=== PATIENT | male | born 1950 | race Caucasian/White ===

== ENCOUNTER → 2017-01-25 | Outpatient (REF) | payer MEDICARE ==
[~2017-01-25] MED LIST: EXTR500C4 PO; GABA-279 PO; LISI10TA2 PO; MELO15TA4 PO; PERC5TAB12 PO; VITA1CAP20 PO; VITA1CAP7 PO
[2017-01-25 12:15] LABS: ALBUMIN 3.9 GM/DL (3.2-5.2); ALBUMIN/GLOBULIN RATIO 1.18 (1.00-1.93); ALKALINE PHOSPHATASE 75 U/L (45-117); ALT/SGPT 27 U/L (12-78); ANION GAP 11 MEQ/L (8-16); AST/SGOT 26 U/L (15-37); BILIRUBIN,TOTAL 0.4 MG/DL (0.2-1.0); BLOOD UREA NITROGEN 17 MG/DL (7-18); CALCIUM LEVEL 9.3 MG/DL (8.8-10.2); CARBON DIOXIDE LEVEL 26 MEQ/L (21-32); CHLORIDE LEVEL 106 MEQ/L (98-107); CHOLESTEROL LEVEL 179 MG/DL (<200); GLOMERULAR FILTRATION RATE > 60.0 (>49); GLUCOSE, FASTING 90 MG/DL (80-110); POTASSIUM SERUM 4.2 MEQ/L (3.5-5.1); SODIUM LEVEL 143 MEQ/L (136-145); TOTAL PROTEIN 7.2 GM/DL (6.4-8.2); TRIGLYCERIDES LEVEL 73 MG/DL (<150)
== END ==
LOC: M SFHCCLAY 09:01
PROVIDERS: ATTEND Family Medicine
DX: Z00.01 Encounter for general adult medical examination with abnormal findings (principal); Z85.46 Personal history of malignant neoplasm of prostate; Z79.899 Other long term (current) drug therapy; M48.06 Spinal stenosis, lumbar region
CPT/HCPCS: 80053; 80061; 84443; G0103

== ENCOUNTER → 2017-10-31 | Outpatient (REF) | payer MEDICARE ==
[2017-10-31 17:31] LABS: ALBUMIN 4.1 GM/DL (3.2-5.2); ALBUMIN/GLOBULIN RATIO 1.11 (1.00-1.93); ALKALINE PHOSPHATASE 70 U/L (45-117); ALT/SGPT 23 U/L (12-78); ANION GAP 11 MEQ/L (8-16); AST/SGOT 18 U/L (7-37); BILIRUBIN,TOTAL 0.7 MG/DL (0.2-1.0); BLOOD UREA NITROGEN 17 MG/DL (7-18); CARBON DIOXIDE LEVEL 26 MEQ/L (21-32); CHLORIDE LEVEL 104 MEQ/L (98-107); CHOLESTEROL LEVEL 200 MG/DL (<200); CHOLESTEROL RISK RATIO 2.985 (<5); CREATININE FOR GFR 1.15 MG/DL (0.70-1.30); GLOMERULAR FILTRATION RATE > 60.0 (>49); GLUCOSE, FASTING 75 MG/DL (70-100); HDL CHOLESTEROL 67 MG/DL (>40); LDL CHOLESTEROL 113.6 MG/DL (<100); NON-HDL-C 133 MG/DL; POTASSIUM SERUM 4.3 MEQ/L (3.5-5.1); PROSTATIC SPECIFIC AG MONITOR 0.11 NG/ML (< 4.0); SODIUM LEVEL 141 MEQ/L (136-145); TOTAL PROTEIN 7.8 GM/DL (6.4-8.2); TRIGLYCERIDES LEVEL 97 MG/DL (<150)
== END ==
LOC: M SFHCCLAY 13:28
DX: I10 Essential (primary) hypertension (principal); Z85.46 Personal history of malignant neoplasm of prostate
CPT/HCPCS: 80053

== ENCOUNTER → 2018-05-01 | Outpatient (REF) | payer MEDICARE ==
[2018-05-01 17:35] LABS: PROSTATIC SPECIFIC AG MONITOR 0.1 NG/ML (< 4.0)
== END ==
LOC: M SFHCCLAY 11:08
DX: Z85.46 Personal history of malignant neoplasm of prostate (principal)
CPT/HCPCS: 84153

== ENCOUNTER → 2018-06-21 | Outpatient (REF) | payer MEDICARE ==
[~2018-06-21] MED LIST changes: +GABA-1171 PO; -GABA-279 PO; +MELO15TA28 PO; -MELO15TA4 PO
[2018-06-21 17:44] LABS: INR 0.99; PROTHROMBIN TIME 13.2 SECONDS (12.1-14.4)
[2018-06-21 17:45] LABS: PARTIAL THROMBOPLASTIN TIME 31.6 SECONDS (25.4-37.6)
== END ==
LOC: M LABDRAW1 16:26
PROVIDERS: ATTEND Physician Assistant
DX: Z01.812 Encounter for preprocedural laboratory examination (principal); Z79.899 Other long term (current) drug therapy

== ENCOUNTER → 2018-09-11 | Outpatient (CLI) | payer MEDICARE ==
[~2018-09-11] MED LIST changes: +D-3-50003 PO; -VITA1CAP7 PO
--- NOTE | 2018-09-11 14:20 | REP ---
Chest two views HISTORY: Cough Comparison: None The lungs are clear. The heart is normal in size. The pulmonary vasculature is normal in appearance. Degenerative change is present in the thoracic spine. IMPRESSION: No acute disease.
== END ==
LOC: M CLY 13:29
PROVIDERS: ATTEND Family Medicine
DX: R05 Cough (principal); R50.9 Fever, unspecified
CPT/HCPCS: 71046; G0463

== ENCOUNTER → 2018-11-01 | Outpatient (REF) | payer MEDICARE ==
[2018-11-01 16:26] LABS: ALBUMIN 3.8 GM/DL (3.2-5.2); ALT/SGPT 33 U/L (12-78); BILIRUBIN,TOTAL 0.4 MG/DL (0.2-1.0); BLOOD UREA NITROGEN 17 MG/DL (7-18); CARBON DIOXIDE LEVEL 31 MEQ/L (21-32); CHLORIDE LEVEL 104 MEQ/L (98-107); CHOLESTEROL LEVEL 209 MG/DL (<200); CHOLESTEROL RISK RATIO 3.215 (<5); CREATININE FOR GFR 1.11 MG/DL (0.70-1.30); GLOMERULAR FILTRATION RATE > 60.0 (>42); GLUCOSE, FASTING 87 MG/DL (70-100); HDL CHOLESTEROL 65 MG/DL (>40); LDL CHOLESTEROL 132 MG/DL (<100); NON-HDL-C 144 MG/DL; POTASSIUM SERUM 4.3 MEQ/L (3.5-5.1); PROSTATIC SPECIFIC AG MONITOR 0.16 NG/ML (< 4.00); SODIUM LEVEL 141 MEQ/L (136-145); TOTAL PROTEIN 7.5 GM/DL (6.4-8.2); TRIGLYCERIDES LEVEL 60 MG/DL (<150)
== END ==
LOC: M SFHCCLAY 12:32
PROVIDERS: ATTEND Family Medicine
DX: I10 Essential (primary) hypertension (principal); Z85.46 Personal history of malignant neoplasm of prostate

== ENCOUNTER 2019-06-29 09:24 | Day surgery (SDC) | payer MEDICARE ==
[~2019-06-29] VITALS: Ht 170.2 cm; Wt 68.0 kg
[~2019-06-29 09:24] MED LIST changes: +ACET-683 PO; +GABA600T4 PO; +K 10100T PO; +LIDOCAINE 2% INJ 100 MG/5 ML SDV (FOR ANES.) As Ordered ONE; +LISI10TA15 PO; -LISI10TA2 PO; +VITA500079 PO; +propofoL 200 MG/20 ML VIAL As Ordered ONE
--- NOTE | 2019-06-29 12:00 | ROOR ---
Patient Name: Mono Sommer Procedure Date: 06/29/2019 11:39 AM Date of : 1950 Age: 69 Room: ARAGON02 Gender: Male Note Status: Finalized Procedure: Colonoscopy Indications: High risk colon cancer surveillance: Personal history of colonic polyps Providers: Aubrey JAY MD Referring MD: Redd Dash MD Requesting Provider: Medicines: Monitored Anesthesia Care Complications: No immediate complications. Procedure: Pre-Anesthesia Assessment: - The heart rate, respiratory rate, oxygen saturations, blood pressure, adequacy of pulmonary ventilation, and response to care were monitored throughout the procedure. The Colonoscope was introduced through the anus and advanced to the cecum, identified by appendiceal orifice and ileocecal valve. The colonoscopy was performed without difficulty. The patient tolerated the procedure well. The quality of the bowel preparation was inadequate. Findings: The perianal and digital rectal examinations were normal. Two sessile polyps were found in the rectum (benign-appearing lesion). The polyps were 5 to 7 mm in size. These polyps were removed with a cold snare. Resection and retrieval were complete. Multiple diverticula were found in the sigmoid colon. Internal hemorrhoids were found during retroflexion. The hemorrhoids were moderate. The exam was otherwise without abnormality on direct and retroflexion views. Impression: - Preparation of the colon was inadequate/suboptimal after extensive lavage. - Two benign appearing 5 to 7 mm polyps in the rectum, removed with a cold snare. Resected and retrieved. - Moderate diverticulosis in the sigmoid colon. - Internal hemorrhoids. - The examination was otherwise normal on direct and retroflexion views. Recommendation: - Repeat colonoscopy in 2 years because the bowel preparation was suboptimal. - (Rec alternate colon preparation for next colonoscopy) Aubrey Jay MD Aubrey JAY MD 06/29/2019 11:59:57 AM Electronically signed by Aubrey JAY MD Number of Addenda: 0 Note Initiated On: 06/29/2019 11:39 AM Estimated Blood Loss: Estimated blood loss: none.
[2019-06-29 12:30] VITALS: BP 130/76
[2019-06-30] MEDS ORDERED: NS 1,000 ML IV ONE (07:00)
== END 2019-06-29 12:32 | disposition home or self-care (01) ==
LOC: M OPP 09:24
PROVIDERS: ATTEND Internal Medicine Gastroenterology
DX: Z12.11 Encounter for screening for malignant neoplasm of colon (principal); Z86.010 Personal history of colon polyps; K64.8 Other hemorrhoids; K62.1 Rectal polyp; K57.30 Diverticulosis of large intestine without perforation or abscess without bleeding; Z79.899 Other long term (current) drug therapy

== ENCOUNTER → 2020-04-16 | Outpatient (REF) | payer MEDICARE ==
[~2020-04-16] MED LIST changes: -LIDOCAINE 2% INJ 100 MG/5 ML SDV (FOR ANES.) As Ordered ONE; -propofoL 200 MG/20 ML VIAL As Ordered ONE
[2020-04-16 13:36] LABS: BILIRUBIN,TOTAL 0.5 MG/DL (0.2-1.0); CALCIUM LEVEL 9.9 MG/DL (8.8-10.2); CHOLESTEROL RISK RATIO 3.745 (<5); CREATININE FOR GFR 1.34 MG/DL (0.70-1.30); GLOMERULAR FILTRATION RATE 55.8 (>42); POTASSIUM SERUM 4.8 MEQ/L (3.5-5.1); PROSTATIC SPECIFIC AG MONITOR 0.31 NG/ML (< 4.00); TOTAL PROTEIN 7.4 GM/DL (6.4-8.2)
== END ==
LOC: M SFHCCLAY 08:24
PROVIDERS: ATTEND Family Medicine
DX: I11.9 Hypertensive heart disease without heart failure (principal); Z13.220 Encounter for screening for lipoid disorders; Z85.46 Personal history of malignant neoplasm of prostate
CPT/HCPCS: 80053; 80061; 84153; G0463

== ENCOUNTER → 2020-05-22 | Outpatient (REF) | payer MEDICARE | LOC: M LABSMT 11:05 | PROVIDERS: ATTEND Urology | DX: Z85.46 Personal history of malignant neoplasm of prostate (principal) | CPT/HCPCS: 84153; 84403; G0463 ==

== ENCOUNTER → 2020-06-10 | Outpatient (CLI) | payer MEDICARE ==
[~2020-06-10] MED LIST changes: +CASO50TA5 PO
--- NOTE | 2020-06-10 11:29 | REP ---
INDICATION: HX OF PROSTATE CA, METS?. COMPARISON: None. TECHNIQUE/RADIOTRACER AND DOSE: Following the intravenous administration of 22 mCi technetium 99 M MDP, patient's low body is imaged in multiple projections. FINDINGS: Mild scattered uptake in portions of the entire spine have a pattern most consistent with arthritic uptake. Most significantly there appears to be arthritic uptake at the posterior facet joints of L4-5. There is arthritic uptake at the left knee joint, posterior aspect of right ankle joint and at the inferior aspect of the right calcaneus. There is mild symmetrical arthritic uptake at the shoulders. There is no compelling scintigraphic evidence of osseous metastases. Renal and bladder activity are seen. IMPRESSION: Scattered arthritic uptake as discussed in detail above. No compelling scintigraphic evidence of osseous metastases. <Electronically signed by Cain Eugene > 06/10/20 1431
== END ==
LOC: M RAD 08:09
PROVIDERS: ATTEND Urology
DX: Z85.46 Personal history of malignant neoplasm of prostate (principal)
CPT/HCPCS: 78306; A9503

== ENCOUNTER → 2020-06-25 | Outpatient (CLI) | payer MEDICARE ==
--- NOTE | 2020-06-25 12:55 | RADONC.CN ---
Radiation Oncology Hx/Consult Radiation Oncology Consult Date of Service: Jun 25, 2020 Pt Identifier Mono Sommer is a 70 year old male with [id number] [place] 3+4=7 PSA 6.83 prostate cancer s/p RP in 2012 ([facility]) with positive right posterolateral margin. He has had a very slow PSA recurrence initially 0.1 post operatively but now rising on serial measurements to 0.32 on most recent check. He is seen for consideration of salvage RT and ADT. Diagnosis/Treatment History Oncologic History Followed originally in [facility] for rising PSA. PSA trend: February 2013 6.82 ng/ml (pre RP) May 2013 0.1 (post-RP) ...stable PSA readings through 201811/01/18 0.16 04/16/20 0.31 05/22/20 0.32 Testosterone 540 RP 05/04/13 [id number] [place] 3+4=7 Tert pattern 5 PNI positive LVI negative Right posterolateral margin positive Recent data: 06/10/20 Bone scan negative IPSS 0 WARD 10 Interval History Mono feels well. He has ED, of moderate nature, has responded previously to cialis, and he says it predates surgery. Definitely worse since RP. Not a priority for him at this time. He has no urinary symptoms whatsoever, no inc ontinence, frequency, nocturia or issues with emptying his bladder. He has regular daily BMs. His appetite is good and weight and energy stable. Past Medical History: HTN Past Surgical History: Laminectomy lumbar 2016 Tonsillectomy Family History: Father sarcoma? 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 Allergies / Meds Allergies: Coded Allergies: No Known Allergies (Unverified , 06/22/19) Home Meds Active Scripts Bicalutamide (Casodex) 50 Mg Tablet, 1 TAB PO DAILY for 30 Days, #30 TAB Prov:JOAQUÍN ADDISON MD 06/25/20 Reported Medications Gabapentin (Gabapentin) 600 Mg Tablet, 600 MG PO TID 06/15/19 Phytonadione (Vit K1) (Vitamin K) 100 Mcg Tablet, 100 MCG PO DAILY, TAB 06/15/19 Cholecalciferol (Vitamin D3) (Vitamin D3) 5,000 Unit Tab.rapdis, 5000 UNIT PO DAILY 06/15/19 Acetaminophen (Acetaminophen) 500 Mg Tablet, 1000 MG PO Q6HP PRN for PAIN, TAB 06/15/19 Lisinopril/Hydrochlorothiazide (Lisinopril-Hctz 10-12.5 mg Tab) 1 Tab Tab, 1 TAB PO DAILY, TAB 11/19/15 Review of Systems Constitutional: Denies: Chills, Fever, Night Sweats Eyes: Denies: Pain, Vision change HEENT: Denies: Head Aches, Dysphagia, Sore Throat Skin: Denies: Rash, Lesions, Bruising Pulmonary: Denies: Dyspnea, Cough Cardiovascular: Denies: Chest Pain, Palpitations, Edema Gastrointestinal: Denies: Nausea, Vomiting, Abdominal Pain, Diarrhea Genitourinary: Denies: Dysuria, Frequency, Incontinence, Hematuria, Retention, Other Symptoms Hematologic: Denies: Bruising, Petecchia, Enlarged Lymph Nodes Musculoskeletal: Denies: Neck pain, Back pain Neurological: Denies: Weakness, Numbness, Incoordination Psych: Reports: Mood Normal; Denies: Memory Issues, Thoughts of Self Harm Vital Signs Ht 67" Wt 162 lb BMI 25 T 97.8 P 71 RR 18 BP 134/71 O2 98% Pain 0 Fatigue 0 General Exam: Positive: Alert, Cooperative, No Acute Distress Eye Exam: Positive: PERRLA, EOMI ENT EXAM: Positive: Mucous membr. moist/pink, Pharynx Normal Neck Exam: Negative: Thyromegaly, Lymphadenopathy Chest Exam: Positive: Normal air movement; Negative: Rales, Rhonchi, Wheezing Heart Exam: Positive: Rate Normal, Regular Rhythm Abdomen Exam: Positive: Soft; Negative: Tenderness, Mass Extremity Exam: Negative: Edema, Tenderness Skin Exam: Positive: Nl turgor and temperature; Negative: Rash Neuro Exam: Positive: Normal Gait, Normal Speech, Cranial Nerves 3-12 NL Psych Exam: Positive: Mental status NL, Mood NL, Memory Intact Other Physical Findings BROOK[place]NN negative, no nodularity in the prostate bed Diagnostic and Laboratory Diagnostic Review Radiologic images, relevant labs and pathology reports were personally reviewed and discussed with Mr. Sommer. Assessment and Plan Impression Mr. Sommer is a 70 year old male with a history of [id number] [place] 3+4=7 PSA 6.83 prostate cancer s/p RP in 2013 ([facility]) with positive right posterolateral margin. He has had a very slow PSA recurrence initially 0.1 post operatively but now rising on serial measurements to 0.32 on most recent check. He is seen for consideration of salvage RT and ADT. Stage [id number] [place] 3+4=7 PSA 6.83 prostate cancer stage IIB positive right po sterolateral margin Performance Status ECOG 0 Plan We had an extensive discussion with Mr. Sommer regarding the diagnosis at hand and available therapeutic options. He has preserved urinary function and no real bothersome symptoms whatsoever. He does have ED but this has been long standing and on dipti discussion today he is realistic in his expectation that it will only get worse with additional therapy. I computed his MSK nomogram which gives a ~60% of biochemical remission with EBRT alone and ~80% with the addition of 6 months of ADT to EBRT. We discussed these options and he would like to have the combined modality approach. For this I will arrange for an initial casodex script and a 6 month eligard shot to follow in the coming weeks. For EBRT I will give 68.4 Gy in 38 fractions to the prostate bed, I will also give a lower dose to the pelvic LN on the basis of the SPPORT trial which identified a PFS advantage with this approach in med with PSA ~0.3 and higher. I do not think this will add excessive toxicity. We discussed the logistics of receiving radiation therapy in detail including the need for a 1-time planning session. We reviewed the side effects of RT, irritative voiding symptoms, fatigue, acute and late rectal side effects, as well as those of ADT, fatigue, lethargy, joint pains, hot flashes and weight gain. These effects all would be expected to subside within a few months of completing ADT given he is otherwise quite healthy and fit. We discussed the paradigm for follow up after, serial PSA checks and testosterone checks until normalization. After discussing the risks, benefits and alternatives to radiation therapy, Mr. Sommer was amenable to pursuing radiotherapy. All questions were answered to the patient's satisfaction. We instructed the patient that if there were any questions,concerns or changes in clinical status in the interim to contact us. Recommendations EBRT + 6 months ADT as discussed above Casodex 50 mg daily to start now Eligard 6 month injection in next 1-2 weeks Simulation in next 1-2 weeks JOAQUÍN ADDISON MD Jun 25, 2020 12:55
== END ==
LOC: M ONCR 10:41
PROVIDERS: ATTEND General Practice
DX: C61 Malignant neoplasm of prostate (principal)

== ENCOUNTER → 2020-07-09 | Outpatient (CLI) | payer MEDICARE ==
[~2020-07-09] MED LIST changes: +LEUPROLIDE 22.5MG KIT (LUPRON DEPOT) (FOR ONCOLOGY) IM ONE
--- NOTE | 2020-07-09 16:44 | RADENCPD ---
Date/Time of Encounter Date of Encounter: Jul 09, 2020 Time of Encounter: 15:00 Encounter Mono presented for his first lupron injection today. Plan is for 6 months of total therapy along with salvage RT. The latter will begin next week. We reviewed the side effects of ADT hot flashes, fatigue, weight gain, joint pains, and loss of libido. Informed consent to proceed was obtained. 3 month lupron injection given. Continue casodex daily until 30 supply runs out. Will confirm testosterone/PSA suppression in the coming weeks. JOAQUÍN ADDISON MD Jul 09, 2020 16:44
== END ==
LOC: M ONCR 14:35
PROVIDERS: ATTEND General Practice
DX: C61 Malignant neoplasm of prostate (principal)
CPT/HCPCS: G0463; J9217

== ENCOUNTER 2020-07-18 12:51 | Outpatient (RCR) | payer MEDICARE ==
[~2020-07-18 12:51] MED LIST changes: -LEUPROLIDE 22.5MG KIT (LUPRON DEPOT) (FOR ONCOLOGY) IM ONE
== END 2020-07-20 ==
LOC: M ONCR 12:51
PROVIDERS: ATTEND General Practice
DX: C61 Malignant neoplasm of prostate (principal)

== ENCOUNTER → 2020-08-20 | Outpatient (RCR) | payer MEDICARE ==
[~2020-08-20] MED LIST changes: +ONDA-83 PO
== END ==
LOC: M ONCR 07-21 12:37
PROVIDERS: ATTEND General Practice
DX: C61 Malignant neoplasm of prostate (principal)

== ENCOUNTER 2020-09-04 14:05 | Outpatient (RCR) | payer MEDICARE | END 2020-09-19 | LOC: M ONCR 14:05 | PROVIDERS: ATTEND General Practice | DX: C61 Malignant neoplasm of prostate (principal) ==

== ENCOUNTER → 2020-09-09 | Outpatient (REF) | payer MEDICARE | LOC: M LAB REF 16:15 | PROVIDERS: ATTEND Surgery | DX: D23.5 Other benign neoplasm of skin of trunk (principal) ==

== ENCOUNTER → 2020-10-09 | Outpatient (CLI) | payer MEDICARE ==
[~2020-10-09] MED LIST changes: +LEUPROLIDE 22.5MG KIT (LUPRON DEPOT) (FOR ONCOLOGY) IM ONE; +VENL75TA2 PO
--- NOTE | 2020-10-09 15:00 | RADENCPD ---
Date/Time of Encounter Date of Encounter: October 09, 2020 Time of Encounter: 14:57 Encounter Mono came in for a brief visit prior to his 2nd and final 3 month lupron injection. He reports that his urination and bowel movements are at his pre-RT baseline. He does however complain of ongoing hot flashes, particularly at night, very bothersome. He has been taking gabapentin 600 mg TID, this has not been effective. I discussed trying effexor 75 mg BID for this, he agreed. We will proceed with 22.5 mg lupron today and follow up in February 2021 with PSA/testosterone as previously planned. JOAQUÍN ADDISON MD October 09, 2020 15:00
== END ==
LOC: M ONCR 13:57
PROVIDERS: ATTEND General Practice
DX: C61 Malignant neoplasm of prostate (principal)
CPT/HCPCS: 96401; J9217

== ENCOUNTER → 2020-11-17 | Outpatient (REF) | payer MEDICARE ==
[~2020-11-17] MED LIST changes: -LEUPROLIDE 22.5MG KIT (LUPRON DEPOT) (FOR ONCOLOGY) IM ONE
[2020-11-18 12:01] LABS: BLOOD UREA NITROGEN 14 MG/DL (7-18); CALCIUM LEVEL 9.8 MG/DL (8.8-10.2); CARBON DIOXIDE LEVEL 31 MEQ/L (21-32); CHLORIDE LEVEL 104 MEQ/L (98-107); CREATININE FOR GFR 1.12 MG/DL (0.70-1.30); GLOMERULAR FILTRATION RATE > 60.0 (>42); GLUCOSE, FASTING 77 MG/DL (70-100); POTASSIUM SERUM 5.4 MEQ/L (3.5-5.1); SODIUM LEVEL 137 MEQ/L (136-145)
== END ==
LOC: M SFHCCLAY 14:33
PROVIDERS: ATTEND Family Medicine
DX: I11.9 Hypertensive heart disease without heart failure (principal)
CPT/HCPCS: 80048; G0442; G0444

== ENCOUNTER → 2020-11-19 | Outpatient (REF) | payer MEDICARE ==
[2020-11-19 16:59] LABS: BLOOD UREA NITROGEN 21 MG/DL (7-18); CALCIUM LEVEL 9.3 MG/DL (8.8-10.2); CARBON DIOXIDE LEVEL 29 MEQ/L (21-32); CHLORIDE LEVEL 104 MEQ/L (98-107); CREATININE FOR GFR 1.06 MG/DL (0.70-1.30); GLOMERULAR FILTRATION RATE > 60.0 (>42); GLUCOSE, FASTING 94 MG/DL (70-100); POTASSIUM SERUM 4.5 MEQ/L (3.5-5.1); PROSTATIC SPECIFIC AG MONITOR < 0.01 NG/ML (< 4.00); SODIUM LEVEL 138 MEQ/L (136-145)
== END ==
LOC: M SFHCCLAY 09:30
PROVIDERS: ATTEND Family Medicine
DX: E87.5 Hyperkalemia (principal); C79.82 Secondary malignant neoplasm of genital organs

== ENCOUNTER → 2020-12-15 | Outpatient (CLI) | payer MEDICARE ==
--- NOTE | 2020-12-15 09:57 | REP ---
INDICATION: AAA SCREENING COMPARISON: None. TECHNIQUE: Multiple ultrasonographic images of the abdominal aorta were obtained from the level of the celiac access to the aortoiliac bifurcation and the longitudinal and transverse scan planes along with color Doppler imaging. FINDINGS: The maximal AP dimension of the abdominal aorta as measured in the longitudinal scan plane is 2.2 cm IMPRESSION: No evidence of abdominal aortic aneurysm. <Electronically signed by Vinicio Trujillo > 12/15/20 0920
== END ==
LOC: M RAD 09:11
PROVIDERS: ATTEND Family Medicine
DX: Z13.6 Encounter for screening for cardiovascular disorders (principal)

== ENCOUNTER → 2021-01-01 | Outpatient (CLI) | payer MEDICARE ==
--- NOTE | 2021-01-01 11:42 | REP ---
INDICATION: LUNG CANCER SCREENING. COMPARISON: None. TECHNIQUE: Low-dose chest CT FINDINGS: There is a 5 mm oval nodule in the lateral segment of the right middle lobe. The lungs are otherwise clear. No evidence of adenopathy. Coronary artery calcifications noted. No failure or effusion. IMPRESSION: 5 mm oval nodule lateral segment right middle lobe. Lung rad 2: Benign 1 year follow-up <Electronically signed by Jay Sanabria > 01/01/21 1139
== END ==
LOC: M RAD 11:22
PROVIDERS: ATTEND Family Medicine
DX: Z12.2 Encounter for screening for malignant neoplasm of respiratory organs (principal); R91.1 Solitary pulmonary nodule

== ENCOUNTER → 2021-03-09 | Outpatient (REF) | payer MEDICARE ==
[2021-03-09 16:51] LABS: PROSTATIC SPECIFIC AG MONITOR < 0.01 NG/ML (< 4.00)
[2021-03-11 11:28] LABS: TESTOSTERONE 227 NG/DL (241-827)
== END ==
LOC: M LABDRAWC 15:51
PROVIDERS: ATTEND General Practice
DX: C61 Malignant neoplasm of prostate (principal)

== ENCOUNTER → 2021-03-11 | Outpatient (CLI) | payer MEDICARE ==
--- NOTE | 2021-03-11 11:11 | RADONC ---
Radiation Oncology Hx/FUP Radiation Oncology Hx/FUP Date of Service: Mar 11, 2021 Pt Identifier Mono Sommer is a 70 year old male seen for a followup visit today at the department of radiation oncology for a history of [id number] [place] 3+4=7 PSA 6.83 prostate cancer s/p RP in 2012 ([facility]) with positive right posterolateral margin. He had a very slow PSA recurrence initially 0.1 post operatively but blossom on serial measurements to 0.32. He completed salvage RT 68.4 Gy in 38 fractions completed 07/14/20-09/04/20 and he received 45 mg Lupron on 07/09/20. Diagnosis/Treatment History Oncologic History Followed originally in [facility] for rising PSA. PSA trend: February 2013 6.82 ng/ml (pre RP) May 2013 0.1 (post-RP) ...stable PSA readings through 201811/01/18 0.16 04/16/20 0.31 05/22/20 0.32 Testosterone 540 03/10/21 <0.01 Testosterone pending RP 05/04/13 [id number] [place] 3+4=7 Tert pattern 5 PNI positive LVI negative Right posterolateral margin positive Recent data: 06/10/20 Bone scan negative Interval History Mono has no urinary or bowel complaints whatsoever. Main concern is ongoing hot flashes, concerned that his lupron has worn off and he is still having these. They have been stable in frequency over recent months. 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 Allergies / Meds Allergies: Coded Allergies: No Known Allergies (Unverified , 06/22/19) Home Meds Active Scripts Venlafaxine HCl (Venlafaxine HCl) 75 Mg Tablet, 1 TAB PO BID for 30 Days, #60 TAB 5 Refills Prov:JOAQUÍN ADDISON MD 10/09/20 Reported Medications Gabapentin (Gabapentin) 600 Mg Tablet, 600 MG PO TID 06/15/19 Phytonadione (Vit K1) (Vitamin K) 100 Mcg Tablet, 100 MCG PO DAILY, TAB 06/15/19 Cholecalciferol (Vitamin D3) (Vitamin D3) 5,000 Unit Tab.rapdis, 5000 UNIT PO DAILY 06/15/19 Acetaminophen (Acetaminophen) 500 Mg Tablet, 1000 MG PO Q6HP PRN for PAIN, TAB 06/15/19 Lisinopril/Hydrochlorothiazide (Lisinopril-Hctz 10-12.5 mg Tab) 1 Tab Tab, 1 TAB PO DAILY, TAB 11/19/15 Review of Systems Review of Systems Constitutional: Reports: Night Sweats; Denies: Fatigue, Weight Loss Eyes: Denies: Pain HEENT: Denies: Head Aches Cardiovascular: Denies: Chest Pain Gastrointestinal: Denies: Abdominal Pain, Hematochezia Genitourinary: Denies: Dysuria, Frequency, Incontinence, Retention Neurological: Denies: Weakness, Numbness Psych: Reports: Mood Normal Physical Examination Vital Signs Wt 162 lbs T 96.8 P 72 RR 116/69 O2 100% Pain 0 Fatigue 0 General Exam: Alert, Cooperative, No Acute Distress Eye Exam: PERRLA, EOMI ENT EXAM: Atraumatic Neck Exam: Supple Chest Exam: Clear to auscultation Heart Exam: Rate Normal Abdomen Exam: Soft Extremity Exam: Negative: Edema Skin Exam: Nl turgor and temperature Neuro Exam: Normal Gait, Normal Speech, Cranial Nerves 3-12 NL Psych Exam: Mental status NL Diagnostic and Laboratory Diagnostic Review Radiologic images, relevant labs and pathology reports were personally reviewed and discussed with Mr. Sommer. Assessment and Plan Impression Assessment Mr. Sommer is a 70 year old male with a history of [id number] [place] 3+4=7 PSA 6.83 prostate cancer s/p RP in 2013 ([facility]) with positive right posterolateral margin. He had a very slow PSA recurrence initially 0.1 post operatively but blossom on serial measurements to 0.32. He completed salvage RT 68.4 Gy in 38 fractions completed 07/14/20-09/04/20 and he received 45 mg Lupron on 07/09/20. PSA appropriately suppressed. Suspect testosterone will recover in ensuing months and his hot flashes will subside along with. Will add testosterone to yesterday's labs and call with result. No urinary or bowel complaints. Has urology follow up in the winter. I will see him again with PSA/testosterone in 6 months time. Performance Status ECOG 0 Plan Mr. Sommer was encouraged to call with questions or concerns in the interim period. Billing Statement Total time of [22] minutes was spent preparing for the visit [1], obtaining HPI [4], examining the patient [1], reviewing diagnostic tests [1], discussing management options [7], coordinating care [1], and writing this note [7]. JOAQUÍN ADDISON MD Mar 11, 2021 11:11
== END ==
LOC: M ONCR 10:28
PROVIDERS: ATTEND General Practice
DX: C61 Malignant neoplasm of prostate (principal); Z79.899 Other long term (current) drug therapy; Z92.3 Personal history of irradiation; Z92.25 Personal history of immunosuppression therapy

== ENCOUNTER → 2021-05-27 | Outpatient (REF) | payer MEDICARE ==
[~2021-05-27] MED LIST changes: -LISI10TA15 PO; +LISI10TA24 PO
== END ==
LOC: M SFHCCLAY 13:54
PROVIDERS: ATTEND Family Medicine
DX: I11.9 Hypertensive heart disease without heart failure (principal); Z85.46 Personal history of malignant neoplasm of prostate
CPT/HCPCS: 80048; 84153; G0463

== ENCOUNTER → 2021-08-20 | Outpatient (CLI) | payer MEDICARE | LOC: M LABSMTC 11:22 | PROVIDERS: ATTEND Anesthesiology | DX: Z01.818 Encounter for other preprocedural examination (principal); Z11.52 Encounter for screening for COVID-19 ==

== ENCOUNTER 2021-08-25 11:45 | Day surgery (SDC) | payer MEDICARE ==
[~2021-08-25] VITALS: Ht 170.2 cm; Wt 65.8 kg
[~2021-08-25 11:45] MED LIST changes: +NS 1,000 ML IV ONE
[2021-08-25] MEDS ORDERED: propofoL 200 MG/20 ML VIAL As Ordered ONE (13:53)
[2021-08-25] MEDS ORDERED: LIDOCAINE 2% 100MG/5ML SDV (FOR ANES.) As Ordered ONE (13:53)
[2021-08-25] MEDS ORDERED: PHENYLephrine 500MCG 5ML (100MCG/ML) SYRINGE As Ordered ONE (13:53)
[2021-08-25 14:20] VITALS: BP 100/66
== END 2021-08-25 14:27 | disposition home or self-care (01) ==
LOC: M OPP 11:45
PROVIDERS: ATTEND Internal Medicine Gastroenterology
DX: Z12.11 Encounter for screening for malignant neoplasm of colon (principal); Z86.010 Personal history of colon polyps; K63.5 Polyp of colon; K57.30 Diverticulosis of large intestine without perforation or abscess without bleeding; K64.8 Other hemorrhoids; Z80.8 Family history of malignant neoplasm of other organs or systems; Z85.46 Personal history of malignant neoplasm of prostate; Z85.828 Personal history of other malignant neoplasm of skin; Z79.899 Other long term (current) drug therapy; Z87.891 Personal history of nicotine dependence
CPT/HCPCS: 45385; 88305; J2370

== ENCOUNTER → 2021-09-15 | Outpatient (REF) | payer MEDICARE ==
[~2021-09-15] MED LIST changes: -NS 1,000 ML IV ONE
[2021-09-15 12:22] LABS: PROSTATIC SPECIFIC AG MONITOR < 0.01 NG/ML (< 4.00)
[2021-09-15 12:26] LABS: TESTOSTERONE 511 NG/DL (241-827)
== END ==
LOC: M LABDRAWC 11:35
PROVIDERS: ATTEND General Practice
DX: C61 Malignant neoplasm of prostate (principal)

== ENCOUNTER → 2021-09-16 | Outpatient (CLI) | payer MEDICARE | LOC: M ONCR 10:23 | PROVIDERS: ATTEND General Practice | DX: C61 Malignant neoplasm of prostate (principal); Z77.090 Contact with and (suspected) exposure to asbestos; Z87.891 Personal history of nicotine dependence; Z92.3 Personal history of irradiation; Z92.25 Personal history of immunosuppression therapy ==

== ENCOUNTER → 2021-12-14 | Outpatient (REF) | payer MEDICARE ==
[2021-12-14 19:50] LABS: BLOOD UREA NITROGEN 18 MG/DL (7-18); CHLORIDE LEVEL 109 MEQ/L (98-107); CREATININE FOR GFR 1.12 MG/DL (0.70-1.30); GLOMERULAR FILTRATION RATE > 60.0 (>42); GLUCOSE, FASTING 85 MG/DL (70-100); POTASSIUM SERUM 4.2 MEQ/L (3.5-5.1); SODIUM LEVEL 142 MEQ/L (136-145)
[2021-12-14 19:51] LABS: CALCIUM LEVEL 9.5 MG/DL (8.8-10.2); CARBON DIOXIDE LEVEL 28 mmol/L (20-29)
== END ==
LOC: M SFHCLERA 10:32
PROVIDERS: ATTEND Family Medicine
DX: I11.9 Hypertensive heart disease without heart failure (principal)

== ENCOUNTER → 2022-06-03 | Outpatient (REF) | payer MEDICARE ==
[2022-06-03 11:49] LABS: BASO % 0.5 % (0.0-1.0); EOS # 0.2 10^3/uL (0.0-0.5); EOS % 2.5 % (0.0-3.0); HEMATOCRIT 45.7 % (42.0-52.0); HEMOGLOBIN 14.9 g/dl (13.5-17.5); LYMPH # 0.8 10^3/uL (1.5-5.0); LYMPH % 9.5 % (24.0-44.0); MEAN CORPUSCULAR HEMOGLOBIN 32.3 pg (27.0-33.0); MEAN CORPUSCULAR HGB CONC 32.6 g/dl (32.0-36.5); MEAN CORPUSCULAR VOLUME 98.9 fl (80.0-96.0); MONO # 0.8 10^3/uL (0.0-0.8); MONO % 9.1 % (2.0-8.0); NEUTROPHILS # 6.5 10^3/uL (1.5-8.5); PLATELET COUNT, AUTOMATED 267 10^3/uL (150-450); RED BLOOD COUNT 4.62 10^6/uL (4.30-6.10); WHITE BLOOD COUNT 8.3 10^3/uL (4.0-10.0)
[2022-06-03 12:22] LABS: ALBUMIN 3.7 G/DL (3.2-5.2); ALKALINE PHOSPHATASE 63 U/L (46-116); ALT/SGPT 19 U/L (7.0-40); AST/SGOT 19 U/L (<34); BILIRUBIN,TOTAL 0.6 MG/DL (0.3-1.2); BLOOD UREA NITROGEN 16 MG/DL (9-23); CALCIUM LEVEL 9.2 MG/DL (8.3-10.6); CARBON DIOXIDE LEVEL 30 MMOL/L (20-31); CHLORIDE LEVEL 106 MMOL/L (98-107); CHOLESTEROL LEVEL 205 MG/DL (<200); CHOLESTEROL RISK RATIO 3.66 (<5); CREATININE FOR GFR 1.04 MG/DL (0.70-1.30); GLOMERULAR FILTRATION RATE > 60.0 (>42); GLUCOSE, FASTING 95 MG/DL (74-106); HDL CHOLESTEROL 55.9 MG/DL (>40); LDL CHOLESTEROL 134.9 MG/DL (<100); NON-HDL-C 149 MG/DL; POTASSIUM SERUM 4.6 MMOL/L (3.5-5.1); PROSTATIC SPECIFIC AG MONITOR 0.04 NG/ML (< 4.00); SODIUM LEVEL 141 MMOL/L (136-145); TOTAL PROTEIN 6.6 G/DL (5.7-8.2); TRIGLYCERIDES LEVEL 71 MG/DL (<150)
== END ==
LOC: M SFHCCLAY 09:05
PROVIDERS: ATTEND Family Medicine
DX: E78.2 Mixed hyperlipidemia (principal); I10 Essential (primary) hypertension; Z85.46 Personal history of malignant neoplasm of prostate

== ENCOUNTER → 2022-08-04 | Outpatient (CLI) | payer MEDICARE | LOC: M RAD 12:21 | PROVIDERS: ATTEND Family Medicine | DX: Z12.2 Encounter for screening for malignant neoplasm of respiratory organs (principal); Z87.891 Personal history of nicotine dependence; R91.1 Solitary pulmonary nodule ==

== ENCOUNTER → 2022-09-15 | Outpatient (REF) | payer MEDICARE | LOC: M LABDRAWC 16:57 | PROVIDERS: ATTEND General Practice | DX: C61 Malignant neoplasm of prostate (principal) ==

== ENCOUNTER → 2022-09-16 | Outpatient (CLI) | payer MEDICARE | LOC: M ONCR 09:51 | PROVIDERS: ATTEND General Practice | DX: C61 Malignant neoplasm of prostate (principal); R30.0 Dysuria; Z57.8 Occupational exposure to other risk factors; Z77.090 Contact with and (suspected) exposure to asbestos; Z79.899 Other long term (current) drug therapy; Z87.891 Personal history of nicotine dependence; Z92.3 Personal history of irradiation | CPT/HCPCS: 36415; 81001; G0463 ==

== ENCOUNTER → 2023-03-02 | Outpatient (CLI) | payer MEDICARE | LOC: M SLEEP 20:00 | PROVIDERS: ATTEND Nurse Practitioner Family | DX: R40.0 Somnolence (principal) ==

== ENCOUNTER → 2023-03-23 | Outpatient (CLI) | payer MEDICARE | LOC: M SLEEP 20:00 | PROVIDERS: ATTEND Nurse Practitioner Family | DX: G47.33 Obstructive sleep apnea (adult) (pediatric) (principal) ==

== ENCOUNTER → 2023-06-13 | Outpatient (REF) | payer MEDICARE ==
[2023-06-13 12:13] LABS: HEMOGLOBIN 16.4 g/dl (13.5-17.5); MEAN CORPUSCULAR HEMOGLOBIN 32.7 pg (27.0-33.0); MEAN CORPUSCULAR HGB CONC 33.5 g/dl (32.0-36.5); MEAN CORPUSCULAR VOLUME 97.8 fl (80.0-96.0); PLATELET COUNT, AUTOMATED 273 10^3/uL (150-450); RED BLOOD COUNT 5.01 10^6/uL (4.30-6.10); WHITE BLOOD COUNT 9.9 10^3/uL (4.0-10.0)
[2023-06-13 12:46] LABS: ALBUMIN 3.8 G/DL (3.2-5.2); ALKALINE PHOSPHATASE 64 U/L (46-116); ALT/SGPT 21 U/L (7.0-40); AST/SGOT 17 U/L (<34); BILIRUBIN,TOTAL 0.6 MG/DL (0.3-1.2); BLOOD UREA NITROGEN 15 MG/DL (9-23); CALCIUM LEVEL 9.5 MG/DL (8.3-10.6); CARBON DIOXIDE LEVEL 30 MMOL/L (20-31); CHLORIDE LEVEL 105 MMOL/L (98-107); CHOLESTEROL LEVEL 209 MG/DL (<200); CHOLESTEROL RISK RATIO 3.27 (<5); CREATININE FOR GFR 1.08 MG/DL (0.70-1.30); GLOMERULAR FILTRATION RATE > 60.0 (>42); GLUCOSE, FASTING 90 MG/DL (74-106); HDL CHOLESTEROL 63.8 MG/DL (>40); LDL CHOLESTEROL 128.4 MG/DL (<100); NON-HDL-C 145.2 MG/DL; POTASSIUM SERUM 4.7 MMOL/L (3.5-5.1); PROSTATIC SPECIFIC AG MONITOR 0.04 NG/ML (< 4.00); SODIUM LEVEL 140 MMOL/L (136-145); TOTAL PROTEIN 7.3 G/DL (5.7-8.2); TRIGLYCERIDES LEVEL 84 MG/DL (<150)
== END ==
LOC: M SFHCCLAY 08:24
PROVIDERS: ATTEND Family Medicine
DX: I10 Essential (primary) hypertension (principal); E78.2 Mixed hyperlipidemia; Z85.46 Personal history of malignant neoplasm of prostate

== ENCOUNTER → 2023-08-10 | Outpatient (CLI) | payer MEDICARE ==
[~2023-08-10] MED LIST changes: +ISOVUE-370 76% 100ML VIAL As Ordered ONE
== END ==
LOC: M RAD 14:02
PROVIDERS: ATTEND Family Medicine
DX: L81.9 Disorder of pigmentation, unspecified (principal); I70.0 Atherosclerosis of aorta; I74.09 Other arterial embolism and thrombosis of abdominal aorta; I70.1 Atherosclerosis of renal artery; I70.203 Unspecified atherosclerosis of native arteries of extremities, bilateral legs; K57.90 Diverticulosis of intestine, part unspecified, without perforation or abscess without bleeding
CPT/HCPCS: 75635; Q9967

== ENCOUNTER → 2023-09-16 | Outpatient (REF) | payer MEDICARE ==
[~2023-09-16] MED LIST changes: -ISOVUE-370 76% 100ML VIAL As Ordered ONE
== END ==
LOC: M LABDRAWC 11:42
PROVIDERS: ATTEND General Practice
DX: C61 Malignant neoplasm of prostate (principal); Z08 Encounter for follow-up examination after completed treatment for malignant neoplasm; Z71.2 Person consulting for explanation of examination or test findings; Z77.011 Contact with and (suspected) exposure to lead; Z77.090 Contact with and (suspected) exposure to asbestos; Z79.899 Other long term (current) drug therapy; Z87.891 Personal history of nicotine dependence; Z90.79 Acquired absence of other genital organ(s); Z92.29 Personal history of other drug therapy; Z92.3 Personal history of irradiation
CPT/HCPCS: 36415; 84153; G0463

== ENCOUNTER → 2023-09-16 | Outpatient (CLI) | payer MEDICARE | LOC: M ONCR 09:44 | PROVIDERS: ATTEND General Practice | DX: Z08 Encounter for follow-up examination after completed treatment for malignant neoplasm (principal); Z85.46 Personal history of malignant neoplasm of prostate; Z71.2 Person consulting for explanation of examination or test findings; Z77.011 Contact with and (suspected) exposure to lead; Z77.090 Contact with and (suspected) exposure to asbestos; Z79.899 Other long term (current) drug therapy; Z87.891 Personal history of nicotine dependence; Z90.79 Acquired absence of other genital organ(s); Z92.29 Personal history of other drug therapy; Z92.3 Personal history of irradiation ==

== ENCOUNTER → 2023-11-02 | Outpatient (REF) | payer MEDICARE ==
[2023-11-02 17:42] LABS: ALBUMIN 4.1 G/DL (3.2-5.2); ALKALINE PHOSPHATASE 62 U/L (46-116); ALT/SGPT 25 U/L (7.0-40); AST/SGOT 16 U/L (<34); BILIRUBIN,TOTAL 0.7 MG/DL (0.3-1.2); BLOOD UREA NITROGEN 14 MG/DL (9-23); CALCIUM LEVEL 9.7 MG/DL (8.3-10.6); CARBON DIOXIDE LEVEL 33 MMOL/L (20-31); CHLORIDE LEVEL 105 MMOL/L (98-107); CHOLESTEROL LEVEL 220 MG/DL (<200); CHOLESTEROL RISK RATIO 3.19 (<5); CREATININE FOR GFR 1.03 MG/DL (0.70-1.30); GLOMERULAR FILTRATION RATE > 60.0 (>42); GLUCOSE, FASTING 101 MG/DL (74-106); HDL CHOLESTEROL 68.9 MG/DL (>40); LDL CHOLESTEROL 136.5 MG/DL (<100); NON-HDL-C 151.1 MG/DL; POTASSIUM SERUM 4.3 MMOL/L (3.5-5.1); SODIUM LEVEL 142 MMOL/L (136-145); TOTAL PROTEIN 7.2 G/DL (5.7-8.2); TRIGLYCERIDES LEVEL 73 MG/DL (<150)
== END ==
LOC: M SFHCCLAY 12:11
PROVIDERS: ATTEND Family Medicine
DX: E78.2 Mixed hyperlipidemia (principal)

== ENCOUNTER → 2023-12-06 | Outpatient (REF) | payer MEDICARE ==
[2023-12-06 17:59] LABS: CHOLESTEROL RISK RATIO 3.23 (<5); HDL CHOLESTEROL 67.6 MG/DL (>40); LDL CHOLESTEROL 138.8 MG/DL (<100); NON-HDL-C 151.4 MG/DL
== END ==
LOC: M SFHCCLAY 09:54
PROVIDERS: ATTEND Family Medicine
DX: E78.2 Mixed hyperlipidemia (principal)

== ENCOUNTER → 2024-01-18 | Outpatient (CLI) | payer MEDICARE | LOC: M RAD 13:08 | PROVIDERS: ATTEND Family Medicine | DX: Z12.2 Encounter for screening for malignant neoplasm of respiratory organs (principal); Z87.891 Personal history of nicotine dependence; M48.061 Spinal stenosis, lumbar region without neurogenic claudication; M51.26 Other intervertebral disc displacement, lumbar region; M54.42 Lumbago with sciatica, left side; M54.41 Lumbago with sciatica, right side ==

== ENCOUNTER → 2024-06-13 | Outpatient (CLI) | payer MEDICARE ==
[~2024-06-13] MED LIST changes: +GABA-1490 PO; -GABA600T4 PO
== END ==
LOC: M PLAIMG 10:43
PROVIDERS: ATTEND Neurological Surgery
DX: M48.062 Spinal stenosis, lumbar region with neurogenic claudication (principal); M47.896 Other spondylosis, lumbar region

== ENCOUNTER → 2024-08-07 | Outpatient (REF) | payer MEDICARE ==
[2024-08-07 13:50] LABS: APPEARANCE, URINE HAZY (CLEAR); BACTERIA, URINE AUTO NEGATIVE (NEGATIVE); BILIRUBIN, URINE AUTO NEGATIVE (NEGATIVE); BLOOD, URINE BLOOD NEGATIVE (NEGATIVE); COLOR, URINE YELLOW (YELLOW); GLUCOSE, URINE (UA) AUTO NEGATIVE (NEGATIVE); KETONE, URINE AUTO NEGATIVE (NEGATIVE); LEUKOCYTE ESTERASE, URINE AUTO NEGATIVE (NEGATIVE); NITRITE, URINE AUTO NEGATIVE (NEGATIVE); PROTEIN, URINE AUTO NEGATIVE (NEGATIVE); RBC, URINE AUTO 1 /HPF (0-3); SQUAMOUS EPITHELIAL CELL UR AU 0 /HPF (0-6); UROBILINOGEN, URINE AUTO 0.2 mg/dL (0.0-2.0); WBC, URINE AUTO 0 /HPF (0-3)
== END ==
LOC: M SMT 13:15
PROVIDERS: ATTEND Physician Assistant
DX: R31.0 Gross hematuria (principal)

== ENCOUNTER → 2024-08-10 | Outpatient (REF) | payer MEDICARE ==
[2024-08-10 17:08] LABS: ALBUMIN 3.7 G/DL (3.2-5.2); ALKALINE PHOSPHATASE 65 U/L (40-129); ALT/SGPT 27 U/L (7.0-40); AST/SGOT 18 U/L (<34); BILIRUBIN,TOTAL 0.5 MG/DL (0.3-1.2); BLOOD UREA NITROGEN 18 MG/DL (9-23); CALCIUM LEVEL 9.1 MG/DL (8.3-10.6); CARBON DIOXIDE LEVEL 29 MMOL/L (20-31); CHLORIDE LEVEL 103 MMOL/L (98-107); CREATININE FOR GFR 0.97 MG/DL (0.70-1.30); GLOMERULAR FILTRATION RATE > 60.0 (>42); GLUCOSE, FASTING 94 MG/DL (74-106); POTASSIUM SERUM 4.3 MMOL/L (3.5-5.1); SODIUM LEVEL 142 MMOL/L (136-145); TOTAL PROTEIN 7.1 G/DL (5.7-8.2)
[2024-08-10 17:13] LABS: HEMATOCRIT 47.4 % (42.0-52.0); HEMOGLOBIN 15.6 g/dl (13.5-17.5); MEAN CORPUSCULAR HGB CONC 32.9 g/dl (32.0-36.5); MEAN CORPUSCULAR VOLUME 97.3 fl (80.0-96.0); PLATELET COUNT, AUTOMATED 262 10^3/uL (150-450); RED BLOOD COUNT 4.87 10^6/uL (4.30-6.10); WHITE BLOOD COUNT 9.8 10^3/uL (4.0-10.0)
== END ==
LOC: M SFHCCLAY 10:06
PROVIDERS: ATTEND Physician Assistant
DX: I10 Essential (primary) hypertension (principal)

== ENCOUNTER → 2024-08-15 | Outpatient (REF) | payer MEDICARE ==
[2024-08-15 17:14] LABS: PROSTATIC SPECIFIC AG MONITOR 0.04 NG/ML (< 4.00)
[2024-08-15 17:15] LABS: CHOLESTEROL RISK RATIO 2.53 (<5); HDL CHOLESTEROL 60.7 MG/DL (>40); LDL CHOLESTEROL 82.1 MG/DL (<100); NON-HDL-C 93.3 MG/DL
== END ==
LOC: M SFHCCLAY 10:37
PROVIDERS: ATTEND Family Medicine
DX: E78.2 Mixed hyperlipidemia (principal); Z85.46 Personal history of malignant neoplasm of prostate

== ENCOUNTER → 2024-08-17 | Outpatient (CLI) | payer MEDICARE ==
[~2024-08-17] MED LIST changes: +ISOVUE-370 76% 100ML VIAL As Ordered ONE
== END ==
LOC: M RAD 08:34
PROVIDERS: ATTEND Physician Assistant
DX: R31.0 Gross hematuria (principal); K76.89 Other specified diseases of liver; K40.20 Bilateral inguinal hernia, without obstruction or gangrene, not specified as recurrent; K57.30 Diverticulosis of large intestine without perforation or abscess without bleeding
CPT/HCPCS: 74178; Q9967

== ENCOUNTER → 2024-08-27 | Outpatient (CLI) | payer MEDICARE ==
[~2024-08-27] MED LIST changes: +ECOT81TA5 PO; +EQL50TAB2 PO; -ISOVUE-370 76% 100ML VIAL As Ordered ONE; +ROSU20TA86 PO; +VIT1TAB.12 PO; +VITA100093 PO; +VITA40TA PO; +ZINC100T3 PO
== END ==
LOC: M CLY 13:58
PROVIDERS: ATTEND Physician Assistant
DX: Z01.818 Encounter for other preprocedural examination (principal)

== ENCOUNTER 2024-09-03 10:28 | Day surgery (SDC) | payer MEDICARE ==
[~2024-09-03] VITALS: Ht 170.2 cm; Wt 67.8 kg
[~2024-09-03 10:28] MED LIST changes: +LIDOCAINE 2% 100MG/5ML SDV (FOR ANES.) As Ordered ONE; +ONDANSETRON 4MG 2ML VIAL As Ordered ONE; +propofoL 200 MG/20 ML VIAL As Ordered ONE
[2024-09-03] MEDS ORDERED: LR 1,000 ML IV SCH ×2 (10:35→13:30)
[2024-09-03] MEDS ORDERED: fentaNYL 100 MCG/2 ML INJECTION As Ordered ONE (12:26)
[2024-09-03] MEDS: POLYSPORIN TOPICAL OINTMENT 15GM As Ordered ONE (12:43)
[2024-09-03] MEDS: ceFAZolin SOD 2 GM IV ONCE IV ONE (12:57)
[2024-09-03] MEDS ORDERED: ACETAMINOPHEN 1000MG/100ML IV BAG As Ordered ONE (13:00)
[2024-09-03] MEDS ORDERED: fentaNYL 100 MCG/2 ML INJECTION IV PRN (13:30)
[2024-09-03] MEDS: LIDOCAINE 2% MDV 20ML VIAL As Ordered ONE (13:30)
[2024-09-03] MEDS ORDERED: HYDROMORPHONE HCL 0.5 MG/ 0.5 ML SYRINGE IV PRN (13:30)
[2024-09-03] MEDS ORDERED: oxyCODONE 5MG TAB PO PRN (13:30)
[2024-09-03] MEDS ORDERED: ONDANSETRON 4MG 2ML VIAL IV PRN (13:30)
[2024-09-03] MEDS ORDERED: CEPH500C PO (13:47)
[2024-09-03] MEDS ORDERED: HYDR-3713 PO (13:47)
[2024-09-03 14:39] VITALS: BP 166/82; TEMP 97; O2SAT 100
== END 2024-09-03 14:52 | disposition home or self-care (01) ==
LOC: M SDC 10:28
PROVIDERS: ATTEND Urology
DX: N43.3 Hydrocele, unspecified (principal); R31.0 Gross hematuria; N30.40 Irradiation cystitis without hematuria; G47.30 Sleep apnea, unspecified; Z85.46 Personal history of malignant neoplasm of prostate; Z90.79 Acquired absence of other genital organ(s); Z79.899 Other long term (current) drug therapy
CPT/HCPCS: 52000; 54640; 55040; 88302; J0131; J0665; J0690; J1100; J2405; J3010

== ENCOUNTER → 2024-10-04 | Outpatient (CLI) | payer MEDICARE ==
[~2024-10-04] MED LIST changes: +CEPH500C PO; +HYDR-3713 PO; -LIDOCAINE 2% 100MG/5ML SDV (FOR ANES.) As Ordered ONE; -ONDANSETRON 4MG 2ML VIAL As Ordered ONE; -propofoL 200 MG/20 ML VIAL As Ordered ONE
[2024-10-04 14:25] LABS: BASO # 0.1 10^3/uL (0.0-0.2); BASO % 0.5 % (0.0-1.0); EOS # 0.2 10^3/uL (0.0-0.5); HEMATOCRIT 46.1 % (42.0-52.0); LYMPH # 0.8 10^3/uL (1.5-5.0); LYMPH % 8.1 % (24.0-44.0); MEAN CORPUSCULAR HEMOGLOBIN 31.5 pg (27.0-33.0); MEAN CORPUSCULAR HGB CONC 32.5 g/dl (32.0-36.5); MEAN CORPUSCULAR VOLUME 96.8 fl (80.0-96.0); MONO # 0.9 10^3/uL (0.0-0.8); NEUTROPHILS % 80.2 % (36.0-66.0); PLATELET COUNT, AUTOMATED 252 10^3/uL (150-450); RED BLOOD COUNT 4.76 10^6/uL (4.30-6.10); WHITE BLOOD COUNT 9.9 10^3/uL (4.0-10.0)
[2024-10-04 14:32] LABS: ALBUMIN 3.9 G/DL (3.2-5.2); ALKALINE PHOSPHATASE 64 U/L (40-129); ALT/SGPT 28 U/L (7.0-40); AST/SGOT 24 U/L (<34); BILIRUBIN,TOTAL 0.5 MG/DL (0.3-1.2); BLOOD UREA NITROGEN 17 MG/DL (9-23); CALCIUM LEVEL 9.4 MG/DL (8.3-10.6); CARBON DIOXIDE LEVEL 32 MMOL/L (20-31); CHLORIDE LEVEL 104 MMOL/L (98-107); CREATININE FOR GFR 1.03 MG/DL (0.70-1.30); GLOMERULAR FILTRATION RATE 75.3 (>42); GLUCOSE, FASTING 82 MG/DL (74-106); POTASSIUM SERUM 4.6 MMOL/L (3.5-5.1); SODIUM LEVEL 143 MMOL/L (136-145); TOTAL PROTEIN 7.1 G/DL (5.7-8.2)
[2024-10-04 14:34] LABS: FOLATE > 24.0 NG/ML (>5.4); THYROID STIMULATING HORMONE 0.604 uIU/ML (0.55-4.78); VITAMIN B12 LEVEL 514 PG/ML (211-911)
[2024-10-04 14:36] LABS: FREE THYROXINE INDEX 2.6 % (1.4-3.8)
[2024-10-09 14:11] LABS: VITAMIN E(ALPHA TOCOPHEROL) 7.2 mg/L (5.7-19.9); VITAMIN E(GAMMA TOCOPHEROL) < 1.0 mg/L (<=4.3)
[2024-10-09 18:17] LABS: VITAMIN B6,PYRIDOXAL PHOSPHATE 32.9 ng/mL (2.1-21.7)
[2024-10-10 08:22] LABS: VITAMIN B1 LEVEL WHOLE BLOOD 184 nmol/L (78-185)
== END ==
LOC: M PLALAB 10:37
PROVIDERS: ATTEND Psychiatry & Neurology Neurology
DX: E53.8 Deficiency of other specified B group vitamins (principal); E07.9 Disorder of thyroid, unspecified; R41.3 Other amnesia

== ENCOUNTER → 2025-01-01 | Outpatient (REF) | payer MEDICARE ==
[~2025-01-01] MED LIST changes: -EQL50TAB2 PO; +VITA1TAB82 PO
[2025-01-01 12:08] LABS: BASO # 0.1 10^3/uL (0.0-0.2); BASO % 0.5 % (0.0-1.0); EOS # 0.3 10^3/uL (0.0-0.5); EOS % 3.7 % (0.0-3.0); LYMPH # 1.1 10^3/uL (1.5-5.0); LYMPH % 11.5 % (24.0-44.0); MONO # 0.7 10^3/uL (0.0-0.8); MONO % 7.9 % (2.0-8.0); NEUTROPHILS # 7.1 10^3/uL (1.5-8.5); NEUTROPHILS % 76.2 % (36.0-66.0); PLATELET COUNT, AUTOMATED 251 10^3/uL (150-450)
[2025-01-01 12:15] LABS: INR 0.92
[2025-01-01 12:16] LABS: ALT/SGPT 25.0 U/L (7.0-40); AST/SGOT 23.0 U/L (<34); CALCIUM LEVEL 9.3 MG/DL (8.3-10.6); CARBON DIOXIDE LEVEL 30.0 MMOL/L (20-31); CHLORIDE LEVEL 105.0 MMOL/L (98-107); CREATININE FOR GFR 1.16 MG/DL (0.70-1.30); GLOMERULAR FILTRATION RATE 65.3 (>42); POTASSIUM SERUM 4.9 MMOL/L (3.5-5.1); SODIUM LEVEL 144.0 MMOL/L (136-145)
== END ==
LOC: M SFHCCLAY 07:11
PROVIDERS: ATTEND Family Medicine
DX: Z01.818 Encounter for other preprocedural examination (principal); I10 Essential (primary) hypertension

== ENCOUNTER → 2025-01-11 | Outpatient (CLI) | payer MEDICARE | LOC: M PLARAD 14:32 | PROVIDERS: ATTEND Neurological Surgery | DX: M48.04 Spinal stenosis, thoracic region (principal); M48.061 Spinal stenosis, lumbar region without neurogenic claudication; M51.24 Other intervertebral disc displacement, thoracic region; M51.26 Other intervertebral disc displacement, lumbar region; M43.16 Spondylolisthesis, lumbar region; M24.28 Disorder of ligament, vertebrae; M47.816 Spondylosis without myelopathy or radiculopathy, lumbar region ==